=== PATIENT | female | born 1930 | race African-American/Black ===

== ENCOUNTER → 2017-08-21 | Outpatient (CLI) | payer MEDICARE ==
--- NOTE | 2017-08-21 14:00 | RADIOLOGY REPORT (SQ) ---
EXAM DESCRIPTION: KUB COMPLETED DATE/TIME: 08/21/2017 12:50 pm REASON FOR STUDY: UNSPECIFIED ABDOMINAL PAIN R10.9 UNSPECIFIED ABDOMINAL PAIN COMPARISON: None. NUMBER OF VIEWS: One view. TECHNIQUE: Supine radiographic image of the abdomen acquired. LIMITATIONS: None. FINDINGS: BOWEL GAS PATTERN: Considerable bowel gas is present, but the pattern is nonobstructive. There are no significantly dilated loops. CALCIFICATIONS: No suspicious calcifications. SOFT TISSUES: No gross mass or suggestion of organomegaly. HARDWARE: None in the abdomen. BONES: Lumbar degenerative changes. OTHER: No other significant finding. IMPRESSION: NO RADIOGRAPHIC EVIDENCE FOR ACUTE ABDOMINAL DISEASE. TECHNICAL DOCUMENTATION: JOB ID: [id number] [employer]- All Rights Reserved
== END ==
LOC: OD 12:35
PROVIDERS: ATTEND Urology
DX: R10.9 Unspecified abdominal pain (principal)
CPT/HCPCS: 74000

== ENCOUNTER → 2017-09-11 | Outpatient (CLI) | payer MEDICARE ==
--- NOTE | 2017-09-11 16:58 | RADIOLOGY REPORT (SQ) ---
EXAM DESCRIPTION: SACRUM AND COCCYX COMPLETED DATE/TIME: 09/11/2017 4:15 pm REASON FOR STUDY: UNSPECIFIED OSTEOARTHRITIS, UNSPECIFIED SITE K58.9 IRRITABLE BOWEL SYNDROME WITHO UT DIARRHEA K59.00 CONSTIPATION, UNSPECIFIED N39.0 URINARY TRACT INFECTION, SITE NOT SPECIFIED COMPARISON: None. NUMBER OF VIEWS: Three views. TECHNIQUE: AP, lateral, and tilt views of the sacrum and coccyx. LIMITATIONS: None. FINDINGS: MINERALIZATION: Osteopenia. BONES: No acute fracture or dislocation. No worrisome bone lesions. SOFT TISSUES: No soft tissue swelling. No foreign body. OTHER: Lumbar degenerative changes. IMPRESSION: No acute abnormality is seen in the sacrum or coccyx. If there is high index suspicion for sacral insufficiency fractures, consider MRI. TECHNICAL DOCUMENTATION: JOB ID: [id number]- All Rights Reserved
--- NOTE | 2017-09-11 17:22 | RADIOLOGY REPORT (SQ) ---
EXAM DESCRIPTION: ABDOMEN 2 VIEWS COMPLETED DATE/TIME: 09/11/2017 4:15 pm REASON FOR STUDY: CONSTIPATION K58.9 IRRITABLE BOWEL SYNDROME WITHOUT DIARRHEA K59.00 CONSTIPATION , UNSPECIFIED N39.0 URINARY TRACT INFECTION, SITE NOT SPECIFIED COMPARISON: None. NUMBER OF VIEWS: Two views. TECHNIQUE: Supine and erect radiographic images of the abdomen acquired. LIMITATIONS: None. FINDINGS: FREE AIR: None. No abnormal gas collections. LUNG BASES: Clear. BOWEL GAS PATTERN: Nonobstructive pattern. No dilated loops or air fluid levels. CALCIFICATIONS: No suspicious calcifications. SOFT TISSUES: No gross mass or suggestion of organomegaly. HARDWARE: None in the abdomen. BONES: Lumbar degenerative disc changes and spondylosis. OTHER: No other significant finding. IMPRESSION: Nonspecific abdomen. TECHNICAL DOCUMENTATION: JOB ID: [id number] [employer]- All Rights Reserved
--- NOTE | 2017-09-11 17:27 | RADIOLOGY REPORT (SQ) ---
EXAM DESCRIPTION: LUMBAR SPINE COMPLETE COMPLETED DATE/TIME: 09/11/2017 4:15 pm REASON FOR STUDY: UNSPECIFIED OSTEOARTHRITIS, UNSPECIFIED SITE K58.9 IRRITABLE BOWEL SYNDROME WITHO UT DIARRHEA K59.00 CONSTIPATION, UNSPECIFIED N39.0 URINARY TRACT INFECTION, SITE NOT SPECIFIED COMPARISON: None. NUMBER OF VIEWS: Five views including obliques. TECHNIQUE: AP, lateral, oblique, and sacral radiographic images acquired of the lumbar spine. LIMITATIONS: None. FINDINGS: MINERALIZATION: Osteopenia. SEGMENTATION: Normal. No transitional anatomy. ALIGNMENT: Mild scoliosis. VERTEBRAE: There is decreased height of the L3 vertebral body. This does not appear to be acute. Pr ominent anterior osteophytes are present from L2-L5. DISCS: Disc spaces are narrowed from L2-L5. POSTERIOR ELEMENTS: Hypertrophic facet changes are present from L2-L5. HARDWARE: None in the spine. PARASPINAL SOFT TISSUES: Normal. PELVIS: Intact as visualized. No fractures or worrisome bone lesions. SI joints intact. OTHER: No other significant finding. IMPRESSION: Multilevel degenerative disc disease with spondylosis and facet arthropathy. TECHNICAL DOCUMENTATION: JOB ID: [id number] [employer]- All Rights Reserved
== END ==
LOC: OD 15:34
PROVIDERS: ATTEND Urology
DX: K58.9 Irritable bowel syndrome, unspecified (principal); K59.00 Constipation, unspecified; N39.0 Urinary tract infection, site not specified; M19.90 Unspecified osteoarthritis, unspecified site
CPT/HCPCS: 72110; 72220; 74020